=== PATIENT | female | born 1970 | race Caucasian/White ===

== ENCOUNTER 2016-06-03 13:00 | Inpatient (IN) | payer OTHER ==
--- NOTE | ~2016-06-03 | PN ---
Unit #: [id number] #: [id number] Patient: VANDANA GTZ [id number] [facility] [address] [place] [address] [id number] I MR#: [id number] NAME: VNADANA GTZ ROOM: 73 Age: 45 Sex: F Admission Date: 06/03/2016 : 1970 Attending Physician: Marie Hein M.D. Admitting Physician: Marie Hein M.D. Primary Care Physician: Generic Doctor Not In System [facility] PROGRESS NOTES DATE OF SERVICE: 06/04/2016 SUBJECTIVE Ms. Gtz is a 45-year-old white female with mood disorder, who was seen today and chart was reviewed, and case was discussed with the staff. She has been anxious, withdrawn, and rather seclusive to herself and reports persistent depressive symptoms. Meanwhile, she has been taking medications and tolerating them fairly well with no reported side effects. MENTAL STATUS EXAMINATION Middle-aged white female, who was casually dressed with fair personal hygiene, appears to be in no acute distress or discomfort. She was awake alert on interaction with intact orientation. Her mood was anxious with a congruent affect. Her speech was slow and goal directed. She reports having suicidal ideation, but denies any homicidal ideation and also denies any auditory or visual hallucinations. Her insight and judgment remain slightly impaired. TREATMENT PLAN 1. We will continue on her current medications and treatment protocol. We will monitor her response to medications and make further adjustments as needed. 2. We will continue to follow up. Dictated by... Jennifer Ortega/brie TD: 06/05/2016 00:17 JOB #: [id number] [facility] PROGRESS NOTES X Marie Hein MD PROGRESS NOTE
--- NOTE | ~2016-06-03 | PA ---
Unit #: [id number] #: [id number] Patient: VANDANA ARSHAD [id number] [facility] [address] [place] [address] [id number] I MR#: [id number] NAME: VANDANA ARSHAD ROOM: P173 Age: 45 Sex: F Admission Date: 06/03/2016 : 1970 Date of Assessment: 06/03/2016 Attending Physician: Marie Hein M.D. Admitting Physician: Marie Hein M.D. Primary Care Physician: Generic Doctor Not In System PSYCHIATRIC ASSESSMENT DATE OF SERVICE 06/03/2016. IDENTIFYING DATA Ms. Arshad is a 45-year-old, . White female, who is known to me from previous encounter, who was recently discharged from care and a resident of [place], [place] and was referred and transferred to us from [facility] on a voluntary basis. CHIEF COMPLAINT "I've been having suicidal thoughts and my plan is to take pills." HISTORY OF PRESENT ILLNESS Ms. Arshad is a 45-year-old white female with history of mood disorder, who was transferred back to us after she presented to the emergency room at [facility] in [place], [place] stating that she is suicidal with intent to take pills that she has saved in order to end her life. She stated that she turned the medication into the police when they picked her up and brought her to the emergency room. The patient stated that her daughter recently moved in with her and has not been good for her. The patient reports getting out of [facility] on Friday and needing to go back here for safety at the time of initial presentation to the emergency room. She reports that she lives with her adult daughter and son and reports that they get along, but it is not good for "me at all." The patient reports that she has no income since losing her job in November and that she has stenosis of the spine and Gilbert disease and arthritis in her hands and her boyfriend, daughter and son are there for her, but the patient stated that she should phone and will not talk and reports her primary problem is that she drinks too much and stated that she is angry "I'm really trying not to have a panic attack and I've been focusing on not hurting myself." She did report increasing depression upon presentation with irritability, impulsivity, anxiety, feelings of hopelessness and helplessness, and suicidal ideations and as such, recommendation for inpatient level of care was made. SUBSTANCE ABUSE HISTORY The patient reports history of alcohol abuse and has been drinking 6 tall beers a day, but denies any other drug abuse. PAST PSYCHIATRIC HISTORY The patient has had a history of inpatient psychiatric hospitalization at [facility] and was recently discharged from our care. Review of the medical records indicate that she has been on Neurontin and Prozac, Unit #: [id number] #: [id number] Patient: VANDANA ARSHAD though it is not clear if she has been compliant with medications. PAST MEDICAL HISTORY The patient's medical history is significant for Gilbert disease, spinal stenosis, arthritis. ALLERGIES Codeine, latex, and morphine. PERSONAL AND SOCIAL HISTORY A 45-year-old white female, who reports that she lives at home with her son and daughter and has fairly decent social support system. She is currently unemployed and denies any ongoing legal issues. MENTAL STATUS EXAMINATION Middle-aged white female, who was casually dressed with fair personal hygiene, appears to be in no acute distress or discomfort. She was awake and alert on interaction with intact orientation to time, place, and person. Her mood was anxious and depressed with a congruent affect. Her speech was slow and goal directed. She reports having suicidal ideations, but denies any homicidal ideations, and also denies any auditory or visual hallucinations. Her insight and judgment remain significantly impaired. DIAGNOSTIC IMPRESSION Psychiatric: 1. Major depressive disorder, recurrent, moderate, without psychotic features. 2. Alcohol dependence, moderate. Medical: Gilbert disease, spinal stenosis and arthritis. Stressors: Moderate psychosocial stressors. TREATMENT PLAN 1. The patient has presented with a history of substance abuse and mood disorder, and has been decompensating and will need inpatient hospitalization for detoxification, safety, and stabilization. We will start her on detox protocol. We will closely monitor for any worsening withdrawal symptoms. 2. Supportive therapy was provided to the patient. 3. Safe, structured, and nourishing environment will be provided. ESTIMATED LENGTH OF STAY 5 to 7 days. ABILITY TO HELP SELF Limited. WILLINGNESS TO HELP SELF The patient appears to be willing to help self. STRENGTHS 1. Communicative. 2. Cooperative. PROBLEMS 1. Chronic dysphoric symptoms. 2. Poor social support system. Unit #: [id number] #: [id number] Patient: VANDANA ARSHAD DISCHARGE CRITERIA This will be contingent upon the patient's ability to show resolution of her depression and anxiety and her ability to stay safe to herself, particularly after discharge from the hospital. Dictated by... Jennifer Ortega/brie TD: 06/04/2016 07:21 JOB #: [id number] PSYCHIATRIC ASSESSMENT X Marie Hein MD X PSYCHIATRIC ASSESSMENT
--- NOTE | ~2016-06-03 | PN ---
Unit #: [id number] #: [id number] Patient: VANDANA GTZ [id number] [facility] [address] [place] [address] [id number] I MR#: [id number] NAME: VANDANA GTZ ROOM: [facility] Age: 45 Sex: F Admission Date: 06/03/2016 : 1970 Attending Physician: Marie Hein M.D. Admitting Physician: Marie Hein M.D. Primary Care Physician: Generic Doctor Not In System [facility] PROGRESS NOTES DATE June 05, 2016 DISCUSSION Ms. Gtz is a 45-year-old white female, who was seen today and chart was reviewed and the case was discussed with the staff. The patient has been anxious, withdrawn, but has not shown any agitation, irritability, and has been cooperative with the treatment recommendations. She has been taking the medications and tolerating them fairly well with no reported side effects. MENTAL STATUS EXAMINATION Middle-aged white female, who was casually dressed with fair personal hygiene and appears to be in no acute distress or discomfort. The patient was awake and alert with impaired attention and concentration. Her mood is anxious with a congruent affect. Her speech is slow and restricted in content. The patient reports having suicidal ideations but denies any homicidal ideations. Her insight and judgment remain slightly impaired. TREATMENT PLAN 1. We will continue her on her current medications and treatment protocol, and will monitor her response to the medications, and make further adjustments as needed. 2. We will continue to followup. Dictated by... Jennifer Ortega/nomi TD: 06/06/2016 08:03 JOB #: [id number] Unit #: [id number] #: [id number] Patient: VANDANA GTZ [facility] PROGRESS NOTES X Marie Hein MD PROGRESS NOTE
--- NOTE | ~2016-06-03 | DS ---
Unit #: [id number] #: [id number] Patient: VANDANA GTZ [id number] [facility] [address] [place] [address] [id number] I MR#: [id number] NAME: VANDANA GTZ ROOM: P173 Age: 45 Sex: F Admission Date: 06/03/2016 : 1970 Discharge Date: 06/07/2016 Attending Physician: Marie Hein M.D. Primary Care Physician: Generic Doctor Not In System DISCHARGE SUMMARY IDENTIFYING DATA Ms. Gtz is a 45-year-old white female who is known to us from previous encounter, was recently discharged from my care and was transferred to us from [facility]. DISCHARGE DIAGNOSES Psychiatric: Major depressive disorder, recurrent, moderate, without psychotic features; alcohol dependence, moderate. Medical: Gilbert disease, spinal stenosis, arthritis. Stressors: Moderate psychosocial stressors. HISTORY OF PRESENT ILLNESS Please see initial psychiatric evaluation for details. PAST PSYCHIATRIC HISTORY Please see initial psychiatric evaluation for details. PAST MEDICAL HISTORY Please see initial psychiatric evaluation for details. HOSPITAL COURSE The patient was [facility] and was oriented to the hospital environment. Routine p.r.n. medications were initiated, and she was started back on her home medications including her Prozac, and was closely monitored. She was taking the medications regularly and was wanting to go to a long-term rehab level of care. eligibility services representative were able to make arrangements followed by which, it was decided that she will be discharged and transferred to [facility] for further psychiatric treatments at that level. DISCHARGE MEDICATIONS Prozac 60 mg a day for depression. DISCHARGE CONDITION Stable. PROGNOSIS Fair. Dictated by... Marie Hein M.D. Unit #: [id number] #: [id number] Patient: VANDANA GTZ IAA/modl TD: 06/07/2016 07:30 JOB #: [id number] DISCHARGE SUMMARY X Marie Hein MD X DISCHARGE SUMMARY
--- NOTE | ~2016-06-03 | PN ---
Unit #: [id number] #: [id number] Patient: VANDANA GTZ [id number] [facility] [address] [place] [address] [id number] MR#: [id number] NAME: VANDANA GTZ ROOM: 73 Age: 45 Sex: F Admission Date: 06/03/2016 : 1970 Attending Physician: Marie Hein M.D. Admitting Physician: Marie Hein M.D. Primary Care Physician: Generic Doctor Not In System [facility] PROGRESS NOTES DATE OF SERVICE: 06/06/2016 SUBJECTIVE Ms. Gtz is a 45-year-old white female, who was seen today and chart was reviewed and the case was discussed with the staff. She has been anxious, withdrawn, and rather seclusive to herself. Meanwhile, she has been cooperative with the treatment recommendations and has been taking the medications and tolerating them fairly well with no reported side effects. MENTAL STATUS EXAMINATION Middle-aged white female, who was casually dressed with fair personal hygiene, appears to be in no acute distress or discomfort. She was awake and alert on interaction with intact orientation. Her mood was anxious with a congruent affect. She denies any suicidal or homicidal ideations and also denies any auditory or visual hallucinations. Her insight and judgment remain slightly impaired. TREATMENT PLAN 1. We will continue her on her current medications and treatment protocol. We will monitor her response to the medications and make adjustments as needed. 2. We will continue to follow up. Dictated by... Jennifer Ortega/brie TD: 06/06/2016 09:10 JOB #: [id number] [facility] PROGRESS NOTES X Marie Hein MD PROGRESS NOTE
--- NOTE | ~2016-06-03 | HP ---
Unit #: [id number] #: [id number] Patient: VANDANA GTZ [id number] [place] [address] [id number] I MR#: [id number] NAME: VANDANA GTZ ROOM: [facility] Age: 45 Sex: F Admission Date: 06/03/2016 : 1970 Attending Physician: Marie Hein M.D. Admitting Physician: Marie Hein M.D. Primary Care Physician: Generic Doctor Not In System HISTORY AND PHYSICAL HISTORY OF PRESENT ILLNESS The patient is a 45 year old admitted to [facility] with depression and verbalizing wanting to hurt herself. She was just discharged from this facility after treatment for the same. The patient was seen and H and P dated 05/26/2016 was reviewed. This is current. No changes. Please see H and P dated 05/26/2016. Dictated by... Tari Walton P.A.-C. for eJnnifer Sams/yonathan TD: 06/04/2016 10:06 JOB #: [id number] HISTORY AND PHYSICAL X Tari Walton HISTORY AND PHYSICAL
== END 2016-06-07 09:30 | DRG 885 ==
LOC: P1E 13:00
PROC: HZ2ZZZZ Detoxification Services for Substance Abuse Treatment (ICD-10-PCS; principal; 2016-06-03)
DX: F33.1 Major depressive disorder, recurrent, moderate (principal); E80.4 Gilbert syndrome; F10.20 Alcohol dependence, uncomplicated; M19.90 Unspecified osteoarthritis, unspecified site; M48.00 Spinal stenosis, site unspecified